=== PATIENT | male | born 1960 | race Caucasian/White ===

== ENCOUNTER 2016-11-21 11:43 | Emergency (ER) | payer MEDICAID, OTHER ==
[~2016-11-21] VITALS: Ht 188 cm; Wt 77.2 kg
[2016-11-21] MEDS ORDERED: SODIUM CHLORIDE FLUSH 10ML SYR IVF ONE (13:00)
[2016-11-21] MEDS ORDERED: ONDANSETRON 2MG/ML, 2ML IVPush ONE (13:00)
[2016-11-21] MEDS ORDERED: HYDROmorphone 1 MG/ML, 1ML IVPush PRN (13:00)
[2016-11-21] MEDS ORDERED: SODIUM CHLORIDE 0.9% 1,000ML IVBOLUS ONE (13:00)
[2016-11-21 13:08] LABS: HEMOGLOBIN 15.8 g/dL (13.7-18.0)
[2016-11-21] MEDS ORDERED: ONDANSETRON 2MG/ML, 2ML ONE (13:08)
[2016-11-21] MEDS ORDERED: HYDROmorphone 1 MG/ML, 1ML ONE (13:08)
[2016-11-21 13:15] LABS: ASPARTATE AMINO TRANSFERASE 18 U/L (15-37); BLOOD UREA NITROGEN 8 mg/dL (7-18)
[2016-11-21 15:21] VITALS: BP 103/65
== END 2016-11-21 15:07 ==
LOC: ED 15:05
DX: K40.90 Unilateral inguinal hernia, without obstruction or gangrene, not specified as recurrent (principal); R10.32 Left lower quadrant pain; Z88.1 Allergy status to other antibiotic agents
CPT/HCPCS: 36415; 80053; 83605; 85025; 96374; 96375; 99284; J1170; J2405; J7030

== ENCOUNTER 2016-11-28 07:15 | Day surgery (SDC) | payer MEDICAID ==
[~2016-11-28] VITALS: Ht 190.5 cm; Wt 78.0 kg
[~2016-11-28 07:15] MED LIST: BUPIVACAINE/PF-EPI 0.25% 1:200K ONE
[2016-11-28 08:43] VITALS: BP 128/52
[2016-11-28] MEDS ORDERED: LACTATED RINGERS 1,000 ML IV SCH (08:43)
[2016-11-28] MEDS ORDERED: FENTANYL PF 250 MCG/5ML ONE (08:59)
[2016-11-28] MEDS ORDERED: MIDAZOLAM 1 MG/ML, 2ML ONE (08:59)
[2016-11-28] MEDS ORDERED: LIDOCAINE 1%, 2ML SQ PRN (09:00)
[2016-11-28] MEDS ORDERED: PROPOFOL 10 MG/ML, 20ML ONE (09:46)
[2016-11-28] MEDS ORDERED: ONDANSETRON 2MG/ML, 2ML ONE (09:46)
[2016-11-28] MEDS ORDERED: KETOROLAC 30 MG/1 ML ONE (09:46)
[2016-11-28] MEDS ORDERED: DEXAMETHASONE 4 MG/ML, 1ML ONE (09:46)
[2016-11-28] MEDS ORDERED: CEFAZOLIN 1,000 MG ONE (09:46)
[2016-11-28] MEDS ORDERED: PROMETHAZINE 25 MG/ML, 1ML IV PRN (10:30)
[2016-11-28] MEDS ORDERED: ALBUTEROL/IPRATROPIUM 2.5MG/0.5MG, 3 ML NPPB PRN (10:30)
[2016-11-28] MEDS ORDERED: HYDROmorphone 1 MG/ML, 1ML IV PRN (10:30)
[2016-11-28] MEDS ORDERED: hydrALAzine 20 MG/ML, 1ML IV PRN (10:30)
[2016-11-28] MEDS ORDERED: OXYcodone 5 MG/5 ML ORAL.SOL UDC PO PRN (10:30)
[2016-11-28] MEDS ORDERED: ACETAMINOPHEN 325 MG TABLET PO PRN (10:30)
[2016-11-28] MEDS ORDERED: MIDAZOLAM 1 MG/ML, 2ML IV PRN (10:30)
[2016-11-28] MEDS ORDERED: ONDANSETRON 2MG/ML, 2ML IVPush PRN (10:30)
[2016-11-28] MEDS ORDERED: FENTANYL PF 100 MCG/2ML IV PRN (10:30)
[2016-11-28] MEDS ORDERED: LABETALOL 5MG/ML, 20ML IV PRN (10:30)
[2016-11-28] MEDS ORDERED: MEPERIDINE/PF 25MG/0.5ML IVPush PRN (10:30)
[2016-11-28] MEDS ORDERED: OXYcodone 5 MG/5 ML ORAL.SOL UDC ONE (10:42)
[2016-11-28] MEDS ORDERED: ACETAMINOPHEN 325 MG TABLET ONE (10:43)
== END 2016-11-28 12:00 | disposition home or self-care (01) ==
LOC: OR 07:15
PROVIDERS: ATTEND Surgery
DX: K40.90 Unilateral inguinal hernia, without obstruction or gangrene, not specified as recurrent (principal); D17.6 Benign lipomatous neoplasm of spermatic cord; F17.210 Nicotine dependence, cigarettes, uncomplicated; Z72.89 Other problems related to lifestyle
CPT/HCPCS: 49505; C1781; J0690; J1100; J1885; J2250; J2405; J2704; J3010; J7120